=== PATIENT | female | born 1965 | race Caucasian/White ===

== ENCOUNTER 2018-03-10 13:41 | Emergency (ER) | payer OTHER ==
[~2018-03-10] VITALS: Ht 167.6 cm; Wt 0.5 kg
[~2018-03-10 13:41] MED LIST: IMODIUM A-D2 MG PO; PEPCID40 MG PO; ZOFRAN4 MG PO
== END 2018-03-10 16:04 | disposition home or self-care (01) ==
LOC: ER 13:41
DX: B34.9 Viral infection, unspecified (principal)

== ENCOUNTER 2019-01-22 14:50 | Emergency (ER) | payer OTHER ==
[~2019-01-22] VITALS: Ht 162.6 cm; Wt 68.0 kg
== END 2019-01-22 16:39 | disposition home or self-care (01) ==
LOC: ER 14:50
DX: S60.571A Other superficial bite of hand of right hand, initial encounter (principal); W55.01XA Bitten by cat, initial encounter; Y93.89 Activity, other specified; Y92.89 Other specified places as the place of occurrence of the external cause; Y99.8 Other external cause status